=== PATIENT | male | born 1940 | race Hispanic/Latino ===

== ENCOUNTER 2019-09-26 08:26 | Outpatient (CLI) | payer OTHER ==
--- NOTE | 2019-09-26 10:26 | Ultrasound Report ---
ABDOMINAL ULTRASOUND LIMITED (RIGHT UPPER QUADRANT) HISTORY: Abdominal pain COMPARISON: None. TECHNIQUE: Multiple real-time ultrasonographic grayscale images were obtained of the right upper abdo men. FINDINGS: Pancreas: Partially obscured by poor acoustic windows. Visualized portions without significant abnor mality. Liver: Small with an abnormal lobular contour. No liver mass identified. Gallbladder: Partially contracted with multiple shadowing calculi layering dependently within the gal lbladder. Normal gallbladder wall thickness of 1.6 mm. Common bile duct: 1.7 mm. Right kidney: Cortical thinning and irregularity. No hydronephrosis. Kidney measures 10.0 cm. Additional findings: No ascites. IMPRESSION: 1. Cholelithiasis but no signs of acute cholecystitis. 2. No evidence of choledocholithiasis. 3. 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 Signer Name: Josh Gimenez MD Signed: 09/26/2019 10:22 AM Workstation Name: [id number]
== END 2019-09-26 08:27 | disposition home or self-care (01) ==
LOC: US 08:26
PROVIDERS: ATTEND Family Medicine
DX: Z01.89 Encounter for other specified special examinations (principal); K80.20 Calculus of gallbladder without cholecystitis without obstruction; K74.69 Other cirrhosis of liver
CPT/HCPCS: 76705